=== PATIENT | male | born 1990 | race Two or more races ===

== ENCOUNTER 2017-04-16 15:50 | Inpatient (IN) | payer OTHER ==
[~2017-04-16] VITALS: Ht 190.5 cm; Wt 79.4 kg
== END 2017-04-20 11:18 | disposition home or self-care (01) | DRG 813 ==
LOC: ER 15:50 → MEDI 19:45
PROC: 30233R1 Transfusion of Nonautologous Platelets into Peripheral Vein, Percutaneous Approach (ICD-10-PCS; principal; 2017-04-17)
PROC: BW40ZZZ Ultrasonography of Abdomen (ICD-10-PCS; 2017-04-17)
DX: D69.59 Other secondary thrombocytopenia (principal); H10.023 Other mucopurulent conjunctivitis, bilateral

== ENCOUNTER 2017-06-10 12:53 | Outpatient (CLI) | payer OTHER | END 2017-06-10 13:01 | disposition home or self-care (01) | LOC: LAB 12:53 | DX: D69.3 Immune thrombocytopenic purpura (principal) ==

== ENCOUNTER 2022-03-10 11:46 | Emergency (ER) | payer OTHER ==
[~2022-03-10] VITALS: Ht 190.5 cm; Wt 81.6 kg
[2022-03-10] MEDS ORDERED: IBU800 MG PO (15:23)
== END 2022-03-10 16:11 | disposition home or self-care (01) ==
LOC: ER 11:46
DX: S62.396A Other fracture of fifth metacarpal bone, right hand, initial encounter for closed fracture (principal); X83.8XXA Intentional self-harm by other specified means, initial encounter; Y93.89 Activity, other specified; Y92.89 Other specified places as the place of occurrence of the external cause; Y99.9 Unspecified external cause status; Z91.013 Allergy to seafood